=== PATIENT | female | born 1980 | race African-American/Black ===

== ENCOUNTER 2016-09-27 14:23 | Emergency (ER) | payer OTHER ==
[~2016-09-27] VITALS: Ht 167.6 cm; Wt 106.6 kg
[~2016-09-27 14:23] MED LIST: HYDROCODON-ACE1 EA15 ORAL; PRILOSEC20 MG ORAL
[2016-09-27 14:57] VITALS: BP 124/84
--- NOTE | 2016-09-27 14:58 | Emergency Room Report ---
History of Present Illness General Chief Complaint: Earache Source: Patient (CAESAR FORTE) Present Illness HPI The patient is a 36-year-old female presenting with bilateral ear pain and sore throat which has been on and off for the past month. The patient denies any sick contacts recent travel.The patient attempted pain as a 5/10 dull ache to both ears which occasionally radiates down to the throat. The patient denies any symptoms including headache, dizziness, blurred vision, chest pain, shortness of breath, rash (CAESAR FORTE) Allergies: Coded Allergies: ASPIRIN (Verified Allergy, Unknown, 11/25/15) Patient History Past Medical History: see triage record Pertinent Family History: none Last Menstrual Period: 09/25/16 Reviewed Nursing Documentation: PMH: Agreed, PSxH: Agreed (CAESAR FORTE) Nursing Documentation-PMH Past Medical History: No History, Except For Hx Gastrointestinal Problems: Yes - GERD (CAESAR FORTE) Review of Systems All Other Systems: negative except mentioned in HPI (CAESAR FORTE) Physical Exam Vital Signs Date Time Temp Pulse Resp B/P Pulse Ox O2 Delivery O2 Flow Rate FiO2 09/27/16 14:35 98.6 100 18 124/84 99 Room Air Sp02 EP Interpretation: reviewed, normal General Appearance: no apparent distress, alert, GCS 15, non-toxic Head: normocephalic, atraumatic Eyes: bilateral eye PERRL, bilateral eye normal inspection ENT: hearing grossly normal, normal pharynx, no angioedema, normal voice, uvula midline, moist mucus membranes, other - EAC erythematous bilat. TM intact. No bulging Neck: full range of motion, supple/symm/no masses Respiratory: chest non-tender, lungs clear, normal breath sounds, speaking full sentences Cardiovascular #1: regular rate, rhythm, no edema Musculoskeletal: back normal, gait/station normal, normal range of motion, non- tender Neurologic: alert, oriented x3, responsive, motor strength/tone normal, sensory intact, speech normal Psychiatric: judgement/insight normal, memory normal, mood/affect normal, no suicidal/homicidal ideation Skin: normal color, no rash, warm/dry, well hydrated Lymphatic: no adenopathy (CAESAR FORTE) Medical Decision Making PA Attestation Dr. Chavez is my supervising physician. Patient management was discussed with my supervising physician (CAESAR FORTE) Diagnostic Impression: Primary Impression: Otitis externa of both ears Additional Impression: GERD (gastroesophageal reflux disease) ER Course The patient is a 36-year-old female presenting with bilateral ear pain Differential diagnosis include but not limited to otitis externa, otitis media, mastoiditis, sinusitis, pharyngitis Physical exam: Afebrile. No apparent distress. HEENT: Remarkable for bilateral external auditory canal erythema and tenderness to palpation over tragus. Tympanic membranes intact bilaterally. No bulging or erythema. Otherwise exam is unremarkable The patient will be discharged home with a prescription for Cortisporin. The patient is also asking for refill of omeprazole for GERD. ER precautions are given (CAESAR FORTE) Last Vital Signs Date Time Temp Pulse Resp B/P Pulse Ox O2 Delivery O2 Flow Rate FiO2 09/27/16 14:35 98.6 100 18 124/84 99 Room Air Status: improved (CAESAR FORTE) Last Vital Signs Date Time Temp Pulse Resp B/P Pulse Ox O2 Delivery O2 Flow Rate FiO2 09/27/16 15:06 98.6 78 18 124/84 99 Room Air (Robert Chavez M.D.) Disposition: HOME, SELF-CARE Condition: Improved Scripts Omeprazole (OMEPRAZOLE) 20 Mg Capsule. 20 MG ORAL DAILY, #30 CAP Prov: CAESAR FORTE.ATaran 09/27/16 Neomycin/Polymyxin B Sulf/Hc* (CORTISPORIN EAR SOLUTION*) 10 Ml Solution 4 DROP BOTH EARS QID, #10 ML 0 Refills Prov: CAESAR FORTE.ATaran 09/27/16 CAESAR FORTE Sep 27, 2016 14:58 Robert Chavez M.D. Sep 29, 2016 04:26
[2016-09-27] MEDS ORDERED: OMEPRAZOLE20 M2 ORAL (15:00)
[2016-09-27] MEDS ORDERED: CORTISPORIN EAR10 ML BOTH EARS (15:00)
[2016-09-27 15:06] VITALS: BP 124/84
== END 2016-09-27 15:05 | disposition home or self-care (01) ==
LOC: EMR 14:59
DX: H60.93 Unspecified otitis externa, bilateral (principal); K21.9 Gastro-esophageal reflux disease without esophagitis; Z88.6 Allergy status to analgesic agent
CPT/HCPCS: 99284

== ENCOUNTER 2019-02-09 16:16 | Emergency (ER) | payer OTHER ==
[~2019-02-09] VITALS: Ht 167.6 cm; Wt 113.4 kg
[~2019-02-09 16:16] MED LIST changes: +CORTISPORIN EAR10 ML BOTH EARS; +OMEPRAZOLE20 M2 ORAL
[2019-02-09 16:30] VITALS: BP 137/76
--- NOTE | 2019-02-09 16:30 | NUR ---
ED Nurse Note: Patient walked in to ER c/o 4/10 abdominal pain and nausea for last few days. Patient aao x4 and ambulatory. skin clean and intact. calm and cooperative. no nausea noted at this time.
[2019-02-09] MEDS ORDERED: Mylanta II UD 30ml ORAL ONE (16:45)
[2019-02-09] MEDS ORDERED: Lidocaine 2% Visc 15ml soln ORAL ONE (16:45)
--- NOTE | 2019-02-09 16:50 | NUR ---
ED Nurse Note: US initiated at bedside.
[2019-02-09 16:55] LABS: APPEARANCE,URINE CLEAR; BILIRUBIN, URINE NEGATIVE (NEGATIVE); GLUCOSE, URINE (UA) NEGATIVE (NEGATIVE); KETONES,URINE NEGATIVE (NEGATIVE); LEUKOCYTE ESTERASE ,URINE 1+ (NEGATIVE); NITRITE,URINE NEGATIVE (NEGATIVE); PH,URINE 5 (4.5-8.0); PROTEIN,URINE 3+ (NEGATIVE); UROBILINOGEN,URINE 1 MG/DL (0.0-1.0)
[2019-02-09 16:56] LABS: COLOR,URINE YELLOW
--- NOTE | 2019-02-09 17:06 | Emergency Room Report ---
History of Present Illness General Chief Complaint: Abdominal Pain Source: Patient Present Illness HPI 38-year-old female presents to the emergency department complaining of 4 out of 10 severity constant sharp right upper quadrant and epigastric pain x3 days. Patient reports acute onset with 8 out of 10 severity that she describes as a stabbing pain. Patient reports nausea denies vomiting denies constipation or diarrhea. Last bowel movement was today and was normal. No fevers or chills, no recent travel. Patient states she does not know whether or not it gets worse with eating. She reports decrease in appetite. Patient does report that she drinks regularly she describes drinking every weekend and reports a moderate amount. Has a history of gastritis for which she does not currently take any medications for. Other aggravating or relieving factors. Denies suspicion of . Allergies: Coded Allergies: ASPIRIN (Verified Allergy, Unknown, 11/25/15) Patient History Past Medical History: see triage record Past Surgical History: none Pertinent Family History: none Last Menstrual Period: 01/23/19 Now: No Reviewed Nursing Documentation: PMH: Agreed; PSxH: Agreed Nursing Documentation-PMH Past Medical History: No History, Except For Hx Gastrointestinal Problems: Yes - GERD Review of Systems All Other Systems: negative except mentioned in HPI Physical Exam Vital Signs Date Time Temp Pulse Resp B/P (MAP) Pulse Ox O2 Delivery O2 Flow Rate FiO2 02/09/19 16:20 97.9 105 17 137/76 (96) 99 Room Air Sp02 EP Interpretation: reviewed, normal General Appearance: no apparent distress, alert, GCS 15, non-toxic Head: normocephalic, atraumatic Eyes: bilateral eye normal inspection, bilateral eye PERRL ENT: hearing grossly normal, normal voice Neck: full range of motion Respiratory: lungs clear, normal breath sounds, speaking full sentences Cardiovascular #1: regular rate, rhythm Gastrointestinal: normal bowel sounds, non tender, soft, no mass, non-distended , no guarding, no hernia Genitourinary: normal inspection, no CVA tenderness Musculoskeletal: back normal, gait/station normal, normal range of motion, non- tender Neurologic: alert, oriented x3, responsive, motor strength/tone normal, sensory intact, speech normal, grossly normal Psychiatric: judgement/insight normal Skin: normal color, no rash, warm/dry, well hydrated Medical Decision Making PA Attestation Dr. Espinosa is my supervising Physician whom patient management has been discussed with. Diagnostic Impression: Primary Impression: Abdominal pain Qualified Codes: R10.11 - Right upper quadrant pain Additional Impression: Fatty infiltration of liver ER Course 38-year-old female presents to the emergency department complaining of 4 out of 10 severity constant sharp right upper quadrant and epigastric pain x3 days. Patient reports acute onset with 8 out of 10 severity that she describes as a stabbing pain. Patient reports nausea denies vomiting denies constipation or diarrhea. Last bowel movement was today and was normal. No fevers or chills, no recent travel. Patient states she does not know whether or not it gets worse with eating. She reports decrease in appetite. Patient does report that she drinks regularly she describes drinking every weekend and reports a moderate amount. Has a history of gastritis for which she does not currently take any medications for. Other aggravating or relieving factors. Denies suspicion of . Ddx considered but are not limited to Diverticulitis, acute appy, diarrhea,UC, PUD, GE, pancreatitis, gallstone, ovarian torsion, Hernia, ectopic , PID tubo-ovarian abscess. Vital signs: are WNL, pt. is afebrile H&PE are most consistent with Gastritis vs. Gallbladder/stone pathology ORDERS: -CBC, CMP, LIPASE: WNL -UA: Unremarkable other than blood, no evidence of infection -URINE HCG: Negative ED INTERVENTIONS: -PO zofran 4mg. / Pepcid, Zofran, Mylanta PO upon reassessment following ED interventions: patient reports symptoms have improved/resolved. --I do not identify an emergent condition at this time. With current presentation, pt. is stable for close outpatient follow up and conservative treatment. D/w pt. to return promptly to ED with worsening or new symptoms.- Pt. verbalizes' understanding and agreement with proposed treatment plan.proposed treatment plan. DISCHARGE: At this time pt. is stable for d/c to home. Will provide printed patient care instructions, and any necessary prescriptions. Care plan and follow up instructions have been discussed with the patient prior to discharge. Labs Test 02/09/19 16:30 02/09/19 17:00 Urine Color Yellow Urine Appearance Clear Urine pH 5 (4.5-8.0) Urine Specific [place] 1.025 (1.005-1.035) Urine Protein 3+ (NEGATIVE) Urine Glucose (UA) Negative (NEGATIVE) Urine Ketones Negative (NEGATIVE) Urine Blood 3+ (NEGATIVE) Urine Nitrite Negative (NEGATIVE) Urine Bilirubin Negative (NEGATIVE) Urine Urobilinogen 1 MG/DL (0.0-1.0) Urine Leukocyte Esterase 1+ (NEGATIVE) Urine RBC 2-4 /HPF (0 - 2) Urine WBC 0-2 /HPF (0 - 2) Urine Squamous Epithelial Cells Few /LPF (NONE/OCC) Urine Bacteria Occasional /HPF (NONE) Urine HCG, Qualitative Negative (NEGATIVE) White Blood Count 10.5 K/UL (4.8-10.8) Red Blood Count 4.83 M/UL (4.20-5.40) Hemoglobin 13.0 G/DL (12.0-16.0) Hematocrit 40.3 % (37.0-47.0) Mean Corpuscular Volume 83 FL (80-99) Mean Corpuscular Hemoglobin 26.9 PG (27.0-31.0) Mean Corpuscular Hemoglobin Concent 32.3 G/DL (32.0-36.0) Red Cell Distribution Width 14.5 % (11.6-14.8) Platelet Count 283 K/UL (150-450) Mean Platelet Volume 8.2 FL (6.5-10.1) Neutrophils (%) (Auto) 58.0 % (45.0-75.0) Lymphocytes (%) (Auto) 26.3 % (20.0-45.0) Monocytes (%) (Auto) 12.8 % (1.0-10.0) Eosinophils (%) (Auto) 1.6 % (0.0-3.0) Basophils (%) (Auto) 1.3 % (0.0-2.0) Sodium Level 139 MMOL/L (136-145) Potassium Level 3.7 MMOL/L (3.5-5.1) Chloride Level 103 MMOL/L (98-107) Carbon Dioxide Level 27 MMOL/L (21-32) Anion Gap 9 mmol/L (5-15) Blood Urea Nitrogen 13 mg/dL (7-18) Creatinine 0.9 MG/DL (0.55-1.30) Estimat Glomerular Filtration Rate > 60 mL/min (>60) Glucose Level 92 MG/DL (74-106) Calcium Level 8.8 MG/DL (8.5-10.1) Total Bilirubin 0.2 MG/DL (0.2-1.0) Aspartate Amino Transf (AST/SGOT) 41 U/L (15-37) Alanine Aminotransferase (ALT/SGPT) 71 U/L (12-78) Alkaline Phosphatase 110 U/L (46-116) Total Protein 8.3 G/DL (6.4-8.2) Albumin 4.1 G/DL (3.4-5.0) Globulin 4.2 g/dL Albumin/Globulin Ratio 1.0 (1.0-2.7) Lipase 184 U/L (73-393) CT/MRI/US Diagnostic Results CT/MRI/US Diagnostic Results : Imaging Test Ordered: ABdominal US Impression "Fatty infiltrate of the liver otherwise unremarkable"-- per official radiology report- Please see report for specific details. Last Vital Signs Date Time Temp Pulse Resp B/P (MAP) Pulse Ox O2 Delivery O2 Flow Rate FiO2 02/09/19 16:30 105 17 Room Air 02/09/19 16:30 97.9 137/76 99 Status: improved Disposition: HOME, SELF-CARE Condition: Stable Scripts Omeprazole (OMEPRAZOLE) 40 Mg Capsule.dr 40 MG ORAL DAILY for 7 Days, #7 CAP Prov: Taylor Anderson 02/09/19 Lidocaine HCl 2% Viscous (Lidocaine HCl 2% Viscous) 100 Ml Solution 15 ML ORAL QID, #120 ML Prov: Taylor Anderson 02/09/19 Ranitidine Hcl* (ZANTAC*) 150 Mg Tablet 150 MG ORAL TWICE A DAY for 10 Days, #20 TAB Prov: Taylor nAderson 02/09/19 Patient Instructions: Abdominal Pain, Adult Additional Instructions: Take medications as directed. Follow up with a Primary Care Provider in 3-5 days, even if your symptoms have resolved. --Please review list of primary care clinics, if you do not already have a primary care provider Return sooner to ED if new symptoms occur, or current symptoms become worse. - Please note that this Emergency Department Report was dictated using [employer] setter technology software, occasionally this can lead to erroneous entry secondary to interpretation by the dictation equipment. Taylor Anderson Feb 09, 2019 17:06
[2019-02-09 17:12] LABS: BASOPHILS % (AUTO) 1.3 % (0.0-2.0); EOSINOPHILS % (AUTO) 1.6 % (0.0-3.0); HEMATOCRIT 40.3 % (37.0-47.0); LYMPHOCYTES % (AUTO) 26.3 % (20.0-45.0); MEAN CORPUSCULAR VOLUME 83 FL (80-99); MONOCYTES % (AUTO) 12.8 % (1.0-10.0); PLATELET COUNT 283 K/UL (150-450); RED BLOOD COUNT 4.83 M/UL (4.20-5.40); RED CELL DISTRIBUTION WIDTH 14.5 % (11.6-14.8); WHITE BLOOD COUNT 10.5 K/UL (4.8-10.8)
[2019-02-09 17:21] LABS: ANION GAP 9 mmol/L (5-15); BLOOD UREA NITROGEN 13 mg/dL (7-18); CALCIUM 8.8 MG/DL (8.5-10.1); CARBON DIOXIDE 27 MMOL/L (21-32); CHLORIDE 103 MMOL/L (98-107); CREATININE 0.9 MG/DL (0.55-1.30); POTASSIUM 3.7 MMOL/L (3.5-5.1); SODIUM 139 MMOL/L (136-145)
[2019-02-09 17:25] LABS: ALANINE AMINOTRANSFERASE 71 U/L (12-78); ALBUMIN 4.1 G/DL (3.4-5.0); ALKALINE PHOSPHATASE 110 U/L (46-116); ASPARTATE AMINO TRANSFERASE 41 U/L (15-37); BILIRUBIN,TOTAL 0.2 MG/DL (0.2-1.0)
--- NOTE | 2019-02-09 17:42 | NUR ---
ED Nurse Note: US done at bedside.
[2019-02-09] MEDS ORDERED: LIDOCAINE VISC100 ML ORAL (18:16)
[2019-02-09] MEDS ORDERED: OMEPRAZOLE40 M1 ORAL (18:16)
[2019-02-09] MEDS ORDERED: ZANTAC150 MG ORAL (18:16)
--- NOTE | 2019-02-09 18:18 | NUR ---
ED Nurse Note: ERPA at bedside discussing the results of US with pt and family.
[2019-02-09 18:24] VITALS: BP 126/85
--- NOTE | 2019-02-09 18:26 | NUR ---
ER DISCHARGE NOTE: Patient is cleared to be discharged per ERPA, pt is aox4, on room air, with stable vital signs. pt was given dc and prescription instructions, pt was able to verbalize understanding, pt id band and iv site removed without complications. pt is able to ambulate with steady gait. pt took all belongings.
--- NOTE | 2019-02-10 09:41 | Diagnostic Imaging Report ---
Indication: Abdominal pain Technique: Multiplanar grayscale and duplex Doppler imaging of the abdomen Comparison: Correlation made to CT of the abdomen and pelvis 11/25/2015 Findings: Imaged portions of the abdominal aorta are normal in caliber. Imaged portions of the pancreatic head grossly unremarkable however evaluation is limited due to overlying bowel gas. The liver is enlarged measuring approximately 19 cm in length. There is diffuse increased hepatic echogenicity most commonly related to hepatic steatosis. No focal hepatic mass lesion is appreciated sonographically. Hepatic contour appears smooth. The gallbladder is unremarkable in appearance. There is no gallbladder wall thickening or pericholecystic fluid. No discrete gallstones identified. Sonographic Tripp sign reported as negative. No appreciable intrahepatic biliary ductal dilatation. Common bile duct is normal in caliber measuring 2.2 mm in diameter. Kidneys demonstrate normal echogenicity. There is no hydronephrosis or sonographically appreciable renal stone. Spleen normal in size. No ascites demonstrated. IMPRESSION: Hepatomegaly. Increased hepatic echogenicity most commonly reflective of hepatic steatosis. Additional hepatocellular diseases should be excluded clinically. Gallbladder unremarkable. Sonographic Tripp sign reported as negative. No biliary ductal dilatation appreciated. This corresponds with the preliminary report by Dr. Desai.
== END 2019-02-09 18:26 | disposition home or self-care (01) ==
LOC: EMR 17:10
DX: R10.11 Right upper quadrant pain (principal); K76.0 Fatty (change of) liver, not elsewhere classified; K21.9 Gastro-esophageal reflux disease without esophagitis; R11.0 Nausea; Z88.6 Allergy status to analgesic agent
CPT/HCPCS: 36415; 76700; 80053; 81003; 81025; 83690; 85025; 99284